=== PATIENT | male | born 1985 | race African-American/Black ===

== ENCOUNTER 2016-12-05 15:41 | Emergency (ER) | payer SELFPAY ==
[~2016-12-05] VITALS: Ht 175.3 cm; Wt 72.6 kg
[~2016-12-05 15:41] MED LIST: IBUPROFEN600 MG ORAL
[2016-12-05] MEDS: Norco 5mg/325mg tab ORAL ONE (16:34)
[2016-12-05] MEDS ORDERED: Bacitracin Oint UD TOPIC ONE (17:45)
[2016-12-05] MEDS ORDERED: Lidocaine 1% Plain 30 ml INJ ONE (17:45)
[2016-12-05] MEDS: LORazepam Inj 2mg/ml 1ml IM ONE (19:48)
[2016-12-05] MEDS: Cephalexin 500mg cap ORAL ONE (21:45)
[2016-12-05] MEDS ORDERED: CEPHALEXIN500 MG ORAL (22:06)
[2016-12-05] MEDS ORDERED: IBUPROFEN600 MG ORAL (22:06)
[2016-12-05] MEDS ORDERED: TRAMADOL HCL50 MG ORAL (22:06)
[2016-12-05 22:35] VITALS: BP 132/91
[2016-12-05 22:40] VITALS: BP 131/90
--- NOTE | 2016-12-06 10:08 | Diagnostic Imaging Report ---
Indication: PAIN Technique: 3 views right hand Comparison: 4 hours earlier Findings: Metallic foreign body within the deep soft tissues is unchanged, still present. No acute fractures. No dislocations Impression: Metallic foreign body persists. This agrees with the preliminary interpretation provided by the emergency room physician
--- NOTE | 2016-12-06 10:35 | Diagnostic Imaging Report ---
Indication: PAIN Technique: 3 views right hand Comparison: none Findings: Exam is somewhat limited due to blurring by motion artifact, as well as suboptimal positioning. There is a wedge-shaped foreign body in the soft tissues of the hand medial to the base of the fifth metatarsal. This measures 2 cm in length. No acute fractures. No dislocations. Joint spaces are preserved Impression: Positive for foreign body. Subsequent images indicate this was recognized by the emergency room physician
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
== END 2016-12-05 22:40 | disposition home or self-care (01) ==
LOC: EMR 18:48
DX: S61.421A Laceration with foreign body of right hand, initial encounter (principal); S61.412A Laceration without foreign body of left hand, initial encounter; Y09 Assault by unspecified means; Y92.9 Unspecified place or not applicable; Y99.9 Unspecified external cause status; M79.642 Pain in left hand; M79.641 Pain in right hand
CPT/HCPCS: 12042; 73130; 96372; 99284; J2001